=== PATIENT | male | born 1960 | race Two or more races ===

== ENCOUNTER 2024-12-27 05:39 | Day surgery (SDC) | payer OTHER ==
[~2024-12-27 05:39] MED LIST: ATORVASTATIN CA10 MG PO; CHILDREN'S ASPI81 MG PO; FARXIGA10 MG PO; METFORMIN HCL500 M3 PO; OMEGA-31000 MG PO; TAMSULOSIN HCL0.4 MG PO; ZESTRIL5 MG PO
[2024-12-27] MEDS ORDERED: METRONIDAZOLE/SODIUM CHLORIDE 500 MG/100 ML PIGGYBACK IV ONE (08:31)
[2024-12-27] MEDS ORDERED: CEFTRIAXONE SODIUM 2,000 MG VIAL ONE (08:31)
[2024-12-27] MEDS ORDERED: BUPIVACAINE HCL/Mpf 0.5% 10ML VIAL ONE (10:03)
[2024-12-27] MEDS ORDERED: LIDOCAINE HCL 1%/EPINEPHRINE 20ML VIAL IJ ONE (10:03)
[2024-12-27] MEDS ORDERED: DIBUCAINE 30 GM TUBE ONE (10:06)
[2024-12-27] MEDS ORDERED: HEMOSTATIC MATRIX 1 KIT KIT TOP ONE (10:06)
[2024-12-27] MEDS ORDERED: POVIDONE-IODINE 118 ML BOTT TOP ONE (10:06)
== END 2024-12-27 14:35 | disposition home or self-care (01) ==
LOC: CIR.AMB 05:39
PROVIDERS: ATTEND Colon & Rectal Surgery
DX: D12.8 Benign neoplasm of rectum (principal); K64.4 Residual hemorrhoidal skin tags; I10 Essential (primary) hypertension; E78.5 Hyperlipidemia, unspecified